=== PATIENT | male | born 1995 | race Caucasian/White ===

== ENCOUNTER 2023-09-08 16:11 | Outpatient (REF) | payer OTHER, SELFPAY ==
--- NOTE | ~2023-09-08 | MR_ITS ---
EXAMINATION: MR LUMBAR SPINE WITHOUT CONTRAST CLINICAL INFORMATION: Worsening low back pain. COMPARISON: None. TECHNIQUE: Multiplanar, multisequence imaging was obtained. FINDINGS: VERTEBRAL BODIES AND PARASPINAL STRUCTURES: The marrow signal is within normal limits. There is reduced intradiscal signal and mild disc space narrowing with a very mild posterior subluxation at the L5-S1 level. Minimal retrolisthesis also evident with mild disc degeneration at the L4-L5 level. The remaining discs are well-hydrated. The paraspinal soft tissues are normal. There is an incidental bilobed 2.3 cm cyst at the lower pole of the left kidney, for which no further imaging follow-up is indicated. The visualized bony pelvis appears normal. CONUS MEDULLARIS AND CAUDA EQUINE: The distal cord, conus tip, and cauda equina nerve roots are normal. SPINAL LEVELS: L1-L2 and L2-L3: No disc pathology, central canal stenosis, or foraminal narrowing. L3-L4: Minimal annular bulge and mild facet arthropathy without central canal stenosis. Very mild right foraminal narrowing. L4-L5: Posterior subluxation and mild degenerative disc bulge with mild facet arthropathy. No central canal stenosis. Mild bilateral foraminal narrowing. L5-S1: Disc degeneration and posterior subluxation with a broad-based posterior disc bulge and superimposed left subarticular zone disc protrusion resulting in very mild impression upon the left S1 nerve root in the left lateral recess inferiorly. Focal underlying annular tear also visible at this site. Moderate bilateral foraminal narrowing without central canal stenosis. MR/MR lumbar spine wo con IMPRESSION: 1. Mild disc degeneration and posterior subluxation at the L5-S1 level with a broad-based posterior disc bulge and superimposed left subarticular zone disc protrusion. Mild impression upon the left S1 nerve root in the left lateral recess. Moderate bilateral foraminal narrowing without central canal stenosis. 2. Mild disc degeneration and posterior subluxation at the L4-L5 level with mild bilateral foraminal narrowing.
== END 2023-09-08 16:12 | disposition home or self-care (01) ==
LOC: HO.MRI 16:11
PROVIDERS: PCP Nurse Practitioner Family; Visit Provider Nurse Practitioner Family
DX: M54.50 Low back pain, unspecified (principal)
CPT/HCPCS: 72148; 72195